=== PATIENT | female | born 1990 | race Caucasian/White ===

== ENCOUNTER → 2020-01-26 08:59 | Outpatient (BNVA) | payer OTHER, SELFPAY | PROVIDERS: Family Provider Family Medicine; PCP Family Medicine; Visit Provider Otolaryngology | DX: H90.A21 Sensorineural hearing loss, unilateral, right ear, with restricted hearing on the contralateral side (principal); H90.A32 Mixed conductive and sensorineural hearing loss, unilateral, left ear with restricted hearing on the contralateral side; J34.2 Deviated nasal septum; H61.22 Impacted cerumen, left ear | CPT/HCPCS: 69210; 99214 ==

== ENCOUNTER 2020-06-21 14:30 | Outpatient (CLI) | payer OTHER, SELFPAY ==
--- NOTE | 2020-06-21 14:46 | US_ITS ---
WS: [id number] OB ultrasound, 06/21/2020 Clinical Data: DATING Comparison: None. Findings: There is a single interuterine . heart rate is 176 beats per minute. There is a yolk sac measuring 0.31 cm. The crown-rump length measured 1.8 cm and the gestational sac 4.21 cm. The estimated gestational age 8w2d is with an XIANG of approximately 01/29/2021. The left ovary measured 3.5 cm x 2.2 cm x 1.3 cm. The right ovary measured 2.3 cm x 2.4 cm x 1.3 cm. No ovarian cyst or masses are seen. US/US OB <= 14 weeks fetus [id number] Impression: 1. Single interuterine . 2. Estimated gestational age of 8w2d with an XIANG of 01/29/2021. 3. heart rate 176 beats per minute.
== END 2020-06-21 14:31 | disposition home or self-care (01) ==
LOC: US 14:36
PROVIDERS: PCP Family Medicine; Visit Provider Family Medicine
DX: Z34.91 Encounter for supervision of normal pregnancy, unspecified, first trimester (principal); Z3A.08 8 weeks gestation of pregnancy
CPT/HCPCS: 76801

== ENCOUNTER → 2020-07-27 12:51 | Outpatient (BNVA) | payer OTHER, SELFPAY | PROVIDERS: PCP Family Medicine; Visit Provider Nurse Practitioner Family | DX: Z20.828 Contact with and (suspected) exposure to other viral communicable diseases (principal) | CPT/HCPCS: 87635 ==

== ENCOUNTER 2020-09-12 14:35 | Outpatient (CLI) | payer OTHER, SELFPAY ==
--- NOTE | 2020-09-12 14:46 | US_ITS ---
WS: [id number] ULTRASOUND TRANSABDOMINAL REASON FOR EXAM: SUPERVISION : 4 PARA: 3 COMPARISON: None available. FINDINGS: Cervical length is 4.11 cm. cm; closed. Placenta grade 0, anterior with no low-lying segments. cardiac tones 138 BPM. Normal four-chamber heart. 3 vessel CORD with normal cord insertion. Normal amniotic fluid volume. Normal extremities. Normal bladder, stomach, and kidneys. No spinal abnormality. Normal cerebellum and cisterna magna. Normal upper lip. Biparietal diameter measures 4.6 cm, equals 20w0d. Head circumference measures 17.5 cm, equals 20w0d. Abdomen circumference measures 15.8 cm, equals 21w0d. Femur length measures 3.2 cm, equals 20w0d. Estimated gestational age 20w2d An estimated delivery 01/28/2021. Estimated weight 356 g. US/US OB >= 14 weeks fetus [id number] IMPRESSION: 1. Single live intrauterine uterines . Estimated gestational age 20w 2d and estimated delivery 01/28/2021.
== END 2020-09-12 14:36 | disposition home or self-care (01) ==
LOC: RAD 14:41
PROVIDERS: PCP Family Medicine; Visit Provider Family Medicine
DX: Z34.82 Encounter for supervision of other normal pregnancy, second trimester; Z3A.20 20 weeks gestation of pregnancy
CPT/HCPCS: 76805

== ENCOUNTER → 2020-11-19 11:39 | Outpatient (BNVA) | payer OTHER, SELFPAY | PROVIDERS: PCP Family Medicine; Visit Provider Family Medicine | DX: Z20.828 Contact with and (suspected) exposure to other viral communicable diseases (principal) | CPT/HCPCS: 87635 ==

== ENCOUNTER 2020-12-11 14:37 | Outpatient (CLI) | payer OTHER, SELFPAY ==
--- NOTE | 2020-12-11 14:40 | US_ITS ---
WS: [id number] LIMITED OBSTETRICAL ULTRASOUND HISTORY: LARGE FOR GESTATION AGE/THIRD TRIMESTER/KELLEN/EFW COMPARISON: 09/12/2020 and 06/21/2020 Presentation: Vertex. Cervix: Closed and normal length. Placenta: Anterior, no previa or abruption. Grade: 1. HEART: FHR of 126 BPM. measurements: BPD = 8.4 cm = 33w5d HC = 30.0 cm = 33w1d AC = 30.1 cm = 34w0d FL = 6.4 cm = 33w0d KELLEN: 15.1 cm EFW: 2237 g; 68 %. AGA by ultrasound: 33w3d XIANG by ultrasound: 01/26/2021 Biometry is internally concordant. Appropriate growth since the prior ultrasound of 06/21/2020. US/US OB limited [id number] IMPRESSION: 1. Single intrauterine gestation of 33 weeks 3 days with an EDC of 01/26/2021. 2. Normal amniotic fluid index. 3. Normal growth.
== END 2020-12-11 14:38 | disposition home or self-care (01) ==
LOC: US 14:38
PROVIDERS: PCP Family Medicine; Visit Provider Family Medicine
DX: O36.63X0 Maternal care for excessive fetal growth, third trimester, not applicable or unspecified (principal); Z3A.33 33 weeks gestation of pregnancy
CPT/HCPCS: 76815

== ENCOUNTER 2021-01-06 09:11 | Outpatient (CLI) | payer OTHER, SELFPAY ==
--- NOTE | 2021-01-06 09:18 | US_ITS ---
WS: [id number] LIMITED OBSTETRICAL ULTRASOUND HISTORY: LARGE FOR GESTATION AGE FETUS/3RD TRIMESTER COMPARISON: 06/21/2020, 09/12/2020 and 12/11/2020 Presentation: Vertex. Cervix: Closed and normal length. Placenta: Anterior, no previa or abruption. Grade: 1 HEART: FHR of 141 BPM. measurements: BPD = 9.0 cm = 36w3d HC = 31.8 cm = 35w5d AC = 33.7 cm = 37w4d FL = 7.1 cm = 36w3d KELLEN: 16.2 cm EFW: 3086 g; 73rd %. AGA by ultrasound: 36w4d XIANG by ultrasound: 01/30/2021 No growth asymmetry. Normal growth of the fetus since the first trimester ultrasound. Head circumfere nce at the 8th percentile which is probably due to difficulty obtaining measurements at this late ges tational age. The BPD is [place]. [place] [id number] IMPRESSION: 1. Single intrauterine gestation of 36 weeks 4 days with an EDC of 01/30/2021. 2. Estimated weight at the 73rd percentile for age. 3. Normal amniotic fluid.
== END 2021-01-06 09:12 | disposition home or self-care (01) ==
PROVIDERS: PCP Family Medicine; Visit Provider Family Medicine
DX: O36.63X0 Maternal care for excessive fetal growth, third trimester, not applicable or unspecified (principal); Z3A.36 36 weeks gestation of pregnancy
CPT/HCPCS: 76816

== ENCOUNTER 2021-01-24 08:56 | Inpatient (IN) | payer OTHER, SELFPAY ==
[2021-01-24] VITALS (29 sets, daily range): BP systolic 103–145; BP diastolic 50–80; PULSE 66–96; TEMP 35.7–36.9; BMI 52.7
[2021-01-24] MEDS: miSOPROStol 100 mcg tablet 25 MCG VAGINAL (10:15)
[2021-01-24 10:17] LABS: Basophils % 0.3 %; Eosinophils # 0.1 10^3/uL (0.0-0.8); Eosinophils % 0.7 %; Hematocrit 34.6 % (37.0-47.0); Hemoglobin 11.3 g/dL (11.5-15.3); Lymphocytes # 1.6 10^3/uL (0.8-4.8); Lymphocytes % 16.2 %; Mean Corpuscular HGB Conc 32.7 g/dL (30.0-36.0); Mean Corpuscular Hemoglobin 28.8 pg (28.0-34.0); Mean Corpuscular Volume 88.3 fL (81-99); Mean Platelet Volume 10.6 fL (7.4-10.4); Monocytes # 0.7 10^3/uL (0.2-0.9); Neutrophils # 7.56 10^3/uL (1.8-7.7); Neutrophils % 74.9 %; Nucleated Red Blood Cells % 0 %; Platelet Count 222 10^3/cmm (130-400); Red Blood Count 3.92 10^6/uL (4.1-5.3); Red Cell Distribution Width 13.9 % (12.1-15.1); White Blood Count 10.1 10^3/uL (4.0-10.0)
[2021-01-24] MEDS: ampicillin 2,000 MG in sodium chloride 0.9% (plus) 50 ML 100 MG IV (10:17)
[2021-01-24] MEDS: dextrose 5%-lactated ringers 1,000 ML 125 ML IV (10:17)
--- NOTE | 2021-01-24 14:14 | PM.HP ---
Providers/Chief Complaint Admitting Physician: Clyde Chow MD Primary Care Provider: Clyde Chow MD Chief Complaint: induction History of Present Illness Angie Nathan is a 30 year old at 39.2 weeks gestation by 8-week ultrasound inconsistent with LMP. Her is complicated by obesity, GBS positive, measuring large for gestational age. The patient presents for an elective induction of labor for concerns of measuring large for gestational age and history of large infants. The patient feels well currently. She had a negative Covid test on 01/22/2021. Patient denies any chest pains, cough, shortness of breath, fever, constipation, diarrhea, dysuria. She has had some mild nausea. Medications/Allergies Home Medications Medication Instructions Recorded Confirmed Last Taken Type cetirizine 10 mg tablet 10 mg PO DAILY 01/26/20 07/27/20 Unknown History prenat.vits,jamison,soo-ppwn-ounnn 1 tab PO DAILY 07/27/20 07/27/20 Unknown History Allergies Allergy/AdvReac Type Severity Reaction Status Date / Time No Known Drug Allergies Allergy Unknown no known Verified 07/27/20 11:43 drug allergies PFSH Acute PFSH: Medical History (Updated 01/24/21 @ 14:28 by Clyde Chow MD) Deviated septum Impacted cerumen of left ear Mixed hearing loss of left ear Sensorineural hearing loss of right ear Social History Smoking and tobacco status: former smoker Alcohol intake: current Alcohol intake frequency: holidays/special occasions only Female Reproductive History: : 4 Vitals/I&O/Wt Last Vital Signs Temp 97.9 F 01/24/21 12:23 Pulse 82 01/24/21 12:24 BP 131/63 01/24/21 12:24 Weight last 48 hrs Weight 307 lb Physical Exam Narrative: EXAM NARRATIVE: General: Alert and oriented x3 Eyes: Pupils equal round and reactive to light and accommodation Mouth: Mucous membranes moist, pharynx non-erythematous Cardiac: Regular rate and rhythm without murmurs Lungs: Clear to auscultation bilaterally without wheezes, crackles or rhonchi Abdomen: Soft, non-tender, fundus large for gestational age Extremities: Trace edema in the bilateral lower extremities Data : 01/24/21 09:59 A&P Additional A&P Information Angie Nathan is a 30 year old at 39.2 weeks gestation by 8-week ultrasound inconsistent with LMP. Her is complicated by obesity, GBS positive, measuring large for gestational age. Currently she is doing well. heart tones are in the mid 130s with moderate variability good accelerations with a category 1 tracing. She is jose j every 2 to 3 minutes. The patient is 1 cm dilated upon admission. She will get Cytotec for induction of labor. She is GBS positive and she will be started on ampicillin. All questions were answered. Proceed with routine care at this time. Attestations Medical Necessity Statement*: The patient will be here for greater than 2 midnights due to routine intrapartum and management of labor and delivery. Coding Level of Care Code Acute Aircraft Load Controller for Brian Jameson
[2021-01-24] MEDS: ampicillin 1,000 MG in sodium chloride 0.9% (plus) 50 ML 100 MG IV ×3 (14:23→21:33)
[2021-01-24] MEDS: butorphanol 2 mg/mL SDV 1 mL 1 MG IVP ×3 (18:24→22:27)
[2021-01-24] MEDS: oxytocin 30 UNIT/500 ML BAG IV (18:44)
[2021-01-25] VITALS (72 sets, daily range): BP systolic 91–188; BP diastolic 55–118; PULSE 63–102; RESP 17; TEMP 35.7–36.7; O2SAT 89–100
[2021-01-25] MEDS: butorphanol 2 mg/mL SDV 1 mL 1 MG IVP (00:26)
[2021-01-25] MEDS: ampicillin 1,000 MG in sodium chloride 0.9% (plus) 50 ML 100 MG IV ×3 (01:18→09:23)
[2021-01-25] MEDS: dextrose 5%-lactated ringers 1,000 ML 125 ML IV ×2 (01:19→08:10)
[2021-01-25] MEDS: ondansetron 2 mg/ML SDV 2 mL 4 MG IVP ×2 (04:13→09:53)
[2021-01-25] MEDS: lactated ringers 1,000 ML 999 ML IV ×2 (04:20→06:29)
--- NOTE | 2021-01-25 06:03 | ANES.PREANE2 ---
Pre-Anesthetic Assessment Pre-Anesthetic Assessment: Height/Weight: Height 1.63 m Weight 139.253 kg Temp Pulse BP Pulse Ox 97.9 F 86 126/63 99 01/25/21 03:58 01/25/21 06:01 01/25/21 06:01 01/25/21 05:56 Preop Diagnosis: Active Labor Proposed Procedure: Labor Epidural Was Beta Ever taken within 24 hours: N/A Was Clonidine taken within 24 hours: N/A Last intake: clear liquids Social: Social History: No alcohol and No tobacco Exam: Pre-Anes Outpt Exam: alert, oriented x 3, clear to auscultation bilaterally and regular rate & rhythm Airway: Submandibular: WNL Cervical ROM: WNL MP: 1 History/ROS: No significant history except as noted Pulmonary: Pulmonary: None reported CV/HEM: CV/HEM: None reported : : None reported Hepatic: Hepatic: None reported GI: GI: None reported Metabolic: Metabolic: Morbid obesity Musc/skel: Musc/skel: None reported Neuropsych: Neuropsych: None reported Anesthetic Plan: ASA status: 2 Anesthesia: Eval. for regional block Risk of > 500 ml blood loss (7ml/kg in children): No Meds/Allergies Current Medications: Current Medications Generic Name Dose Route Start Last Admin Trade Name Freq PRN Reason Stop Dose Admin Butorphanol Tartra te 1 mg 01/24/21 09:29 01/25/21 00:26 Butorphanol 2 Mg /Ml Sdv 1 Ml IVP 1 mg Q2H PRN Administration SEVERE PAIN Dextrose/Lactated Ringer's 1,000 mls @ 125 m ls/hr 01/24/21 09:30 01/25/21 05:21 Dextrose 5%-Lact ated Ringers IV 125 mls/hr .Q8H GUALBERTO Infusion Ampicillin Sodium 1,000 mg/ 50 mls @ 100 mls/ hr 01/24/21 13:33 01/25/21 01:48 Sodium Chloride IV Infused Q4H GUALBERTO Infusion Protocol Oxytocin 30 unit in 500 ml s @ 2 mls/hr 01/24/21 18:45 01/25/21 02:53 Pitocin IV 10 milliunit/min .Q24H GUALBERTO 10 mls/hr Titration Protocol 2 MILLIUNIT/MIN Lactated Ringer's 1,000 mls @ 999 m ls/hr 01/25/21 04:16 01/25/21 05:21 Lactated Ringers IV Infused .Q1H1M PRN Infusion See label comment s Ondansetron HCl 4 mg 01/24/21 09:29 01/25/21 04:13 Ondansetron 2 Mg /Ml Sdv 2 Ml IVP 4 mg Q4H PRN Administration NAUSEA AND VOMITI NG PFSH Anesthesia PFSH: Medical History (Updated 01/24/21 @ 14:28 by Clyde Chow MD) Deviated septum Impacted cerumen of left ear Mixed hearing loss of left ear Sensorineural hearing loss of right ear Social History Smoking and tobacco status: former smoker Alcohol intake: current Alcohol intake frequency: holidays/special occasions only Female Reproductive History: : 4 Data Anesthesia CBC & Chem 7: 01/24/21 09:59 Other Labs: Laboratory Results - last 48 hr 01/24/21 09:59 WBC 10.1 H RBC 3.92 L Hgb 11.3 L Hct 34.6 L MCV 88.3 MCH 28.8 MCHC 32.7 RDW 13.9 Plt Count 222 MPV 10.6 H Neut % (Auto) 74.9 Lymph % (Auto) 16.2 [place] % (Auto) 7.0 Eos % (Auto) 0.7 Baso % (Auto) 0.3 Neut # (Auto) 7.56 Lymph # (Auto) 1.6 [place] # (Auto) 0.7 Eos # (Auto) 0.1 Baso # (Auto) 0.0 Nucleated RBC % (auto) 0 Nucleated RBCs # 0.0 Cardiac Studies: No Data to Display
--- NOTE | 2021-01-25 06:05 | ANES.PROC ---
Anesthesia Procedures Procedure/Date: 01/25/21 Epidural: Time Out Performed: Yes Consents Signed: Procedure Consent Consent: requested by attending/covering physician, from patient, risks and benefits reviewed and patient agrees to proceed Lumbar Level: L4-L5 Epidural procedure: sterile prep of area, 1% lidocaine to numb the area, negative for paresthesia passed, neg for paresthesia, test dose given, 1.5% xylocaine 1:200k epi, 0.2% Ropivacaine bolus ml (5 ml), no systemic response, sterile dressing applied, L.U.D. no apparent complications and 0.2% Ropiavacaine @ mls/hr (13) Additional Comments: VIKAS at 9 cm catheter threaded to 16 cm.
--- NOTE | 2021-01-25 11:59 | P.PCNOB_ITS ---
Delivery Note: Date of delivery: January 25, 2021 Pre-delivery diagnoses: 1. Intrauterine at 39.3 weeks gestation 2. Obesity 3. GBS positive Post-delivery diagnoses: 1. Intrauterine status post vacuum-assisted vaginal delivery at 39.3 weeks gestation 2. Obesity 3. GBS positive 4. Nuchal cord x1 5. Shoulder dystocia x1 minute 6. Delivery of female weighing 10 pounds 12 ounces with Apgars of 1, 5, 7 Pre-Delivery Course: Patient presented to labor and delivery for induction of labor on the morning of 01/24/2021. She was brought in for an elective delivery due to concern for measuring large for gestational age. The patient's ultrasound on 01/06/2021 gave an estimated weight of 3086g and for this reason we wanted to deliver earlier to decrease risk for a large for gestational age . The patient was 1/thick/high upon admission. She was given 1 dose of Cytotec. With this she began to have contractions every 2 to 4 minutes. She thinned some, however did not make significant change. After a number of hours she continued to not make significant change, so IV Pitocin was added to augment labor. The patient was still 1/30/-3 by the evening of 01/24/2021, so I swept her membranes. After this she began to make further change. SROM took place early in the morning of 01/25/2021. She began to make change and received a la boring epidural. Her contractions were long, however quite spaced apart and every 6 minutes on average. There were significant early decelerations with each contraction that recovered well in between contractions. During this process IV Pitocin had been started, however the recovery after the early deceleration was not ideal, so it was stopped. She had a prolonged deceleration that recovered with stopping IV Pitocin, a fluid bolus and repositioning. By 7:54 AM on 01/25/2021, she was complete. Delivery: The patient began pushing at 7:54 AM on 01/25/2021. The patient pushed well with contractions and made steady but slow change. After approximately 2 hours of pushing we discussed possibly doing a section or using a vacuum if change was not been made quickly. The head then began to descend shortly after this 2-hour taylor and so we decided to proceed with pushing. The patient had a contraction that started at 10:46 AM and she pushed well with it, however following this contraction there was a prolonged deceleration. At this point the infant's head was in the +2 station. For this reason at 10:49 AM on 01/25/2021 a vacuum was placed to help expedite the 's delivery. The patient continued to push, however was becoming worn out from pushing and was not able to push as effectively as before. The infant's head partially delivered in the OA position at 10:51 AM. The surrounding vaginal tissue was loose and not restricting delivery. A nuchal cord was noted. It was not reduced to help expedite the delivery. The right shoulder was the anterior shoulder. Suprapubic pressure was placed by the nurses and steady downward pressure was placed by myself and the anterior shoulder would not deliver. Upward pressure was placed to help deliver the posterior shoulder. It still would not deliver with this. I used one finger to try and sweep the right arm inward and it would not deliver either. Finally upward pressure was again applied and the posterior shoulder delivered which then allowed the anterior shoulder to deliver. During this process the nurses gave strong urging for the mother to resume pushing even though she was worn out. The infant delivered at 10:52 AM on 01/25/2021. The had no tone at . The cord was clamped by myself and cut by the nurse. The was taken to the warmer and was warmed and dried and immediately respirations were given. The infant began to breathe shortly after ventilation was given. The umbilical cord was drained of blood and traction was placed. The placenta delivered without complication at 11:19 AM on 01/25/2021. The placenta was noted to be intact with a central umbilical cord insertion site. The uterus was massaged and noted to be firm and midline. A catheter was placed and the bladder was drained of urine. The vaginal wall was inspected and there were a few small abrasions without any lacerations. The cervix was inspected and no lacerations were noted. Currently both the mother and are doing well. A&P Assessment and plan (1) Vacuum-assisted vaginal delivery: Status: Resolved Coding Level of Care Code Acute Dressage Instructor for Chg Fwd Diagnoses Vacuum-assisted vaginal delivery Z37.9
--- NOTE | 2021-01-25 12:28 | PC.NURSE ---
pushing in stirrups
[2021-01-25] MEDS: benzocaine-menthol 78 gm Canister 1 SPRAY TOPICAL (14:53)
[2021-01-25] MEDS: ibuprofen 800 mg tablet PO ×2 (14:54→21:01)
[2021-01-25] MEDS: lanolin oint 7 gm 1 APPLIC TOPICAL (14:54)
[2021-01-25] MEDS: alum-mag-hydroxide-sime 30 mL UDC PO ×2 (16:23→20:05)
--- NOTE | 2021-01-25 18:06 | PC.NURSE ---
Delivery Patient began pushing at 0754. Joce Greenwood RN, Dr Chow, Monica Rivera CST and nursing instructor Lele Watson at bedside continually. The patient pushed well with contractions and made steady but slow change. The head then began to descend shortly after 2hours of pushing. The patient had a contraction that started at 1046 and she pushed well with it, following this contraction there was a prolonged deceleration. At this point the infant's head was at +2 station. At [address] by Dr Chow. The patient continued to push, but was becoming more tired and pushing effort was not as strong. Baby's head partially delivered in the OA position at 10:51 AM. Baby had a nuchal cord which was not reduced. The right shoulder was the anterior shoulder. Suprapubic pressure was performed by Joce Greenwood RN. During this process Joce Greenwood RN and Angus Severino RN gave strong guidance for the mother to keep pushing even though she was tired. Extra nursing staff was called to the room when it was determined that suprapubic pressure was needed. Lele Bond RN and Davi Armenta RN came quickly to the delivery room and were at bedside at time of delivery. Baby delivered at 1052. Baby had no tone and no heart rate upon arrival to the warmer. Cord was clamped and cut immediately at the perineum. Babywas taken to warmer and was dried and stimulated and immediate mechanical respirations were given. The infant began to breathe shortly after ventilation was given. See delivery summary in baby's chart.
[2021-01-25] MEDS: docusate sodium 100 mg Capsule PO (18:59)
[2021-01-25] MEDS: HYDROcodone-acetaminophen 5-325 mg Tablet PO (18:59)
[2021-01-25 23:14] LABS: Hematocrit 32.7 % (37.0-47.0); Hemoglobin 10.9 g/dL (11.5-15.3); Mean Corpuscular HGB Conc 33.3 g/dL (30.0-36.0); Mean Corpuscular Hemoglobin 29.1 pg (28.0-34.0); Mean Corpuscular Volume 87.4 fL (81-99); Mean Platelet Volume 10.3 fL (7.4-10.4); Platelet Count 245 10^3/cmm (130-400); Red Blood Count 3.74 10^6/uL (4.1-5.3)
[2021-01-26] MEDS: HYDROcodone-acetaminophen 5-325 mg Tablet PO ×2 (00:19→06:11)
[2021-01-26] MEDS: alum-mag-hydroxide-sime 30 mL UDC PO (00:19)
[2021-01-26 00:23] VITALS: TEMP 36.4
[2021-01-26 00:24] VITALS: BP 123/57; PULSE 73
[2021-01-26 04:04] VITALS: BP 114/66; PULSE 76; TEMP 36.3
--- NOTE | 2021-01-26 09:49 | PM.DCS ---
Discharge Providers Date of Admission: 01/24/21 08:56 Date of Discharge: January 26, 2021 Attending Provider at Admission: Clyde Chow MD Attending Provider at Discharge: Clyde Chow MD Primary Care Provider: Clyde Chow MD Diagnoses at Discharge Discharge Diagnosis (1) Vacuum-assisted vaginal delivery: Status: Resolved (2) Shoulder dystocia during labor and delivery: Status: Acute Other Information Additional DC diagnoses/information: 1. Intrauterine status post vacuum-assisted vaginal delivery at 39.3 weeks gestation 2. Obesity 3. GBS positive 4. Nuchal cord x1 5. Shoulder dystocia x1 minute 6. Delivery of infant female weighing 10 pounds 12 ounces with Apgars of 1, 5, 7 Reason for Visit Reason for Visit: induction Hospital Course Hospital Course The patient presented to labor and delivery for induction of labor on the morning of 01/24/2021. She was brought in for an elective delivery due to concern for measuring large for gestational age. She was given Cytotec and eventually labor was augmented with Pitocin. She made slow but steady change and delivered a 10 pound 12 ounce at 10:51 AM on 01/25/2021. This was complicated by a shoulder dystocia x1 minute. She did not have any lacerations. the patient has done very well without any complications. She is ambulating, voiding, passing gas and tolerating food by mouth. Her bleeding is decreasing well. Overall her pain is well controlled. Routine discharge instructions were discussed and the patient is requesting discharge today. All questions were answered. She will follow-up with me in clinic. Currently both the mother and are doing very well. Physical Exam Narrative: EXAM NARRATIVE: General: Alert and oriented x3 Cardiac: Regular rate and rhythm without murmurs Lungs: Clear to auscultation bilaterally without wheezes, crackles or rhonchi Abdomen: Soft, non-tender, fundus is firm and just below the umbilicus. Extremities: Trace edema in the bilateral lower extremities Discharge Data Data Completed and Pending: Labs from last 24 hours 01/25/21 23:00 WBC 16.0 H RBC 3.74 L Hgb 10.9 L Hct 32.7 L MCV 87.4 MCH 29.1 MCHC 33.3 RDW 14.0 Plt Count 245 MPV 10.3 Vitals: Last Vital Signs Temp 97.3 F L 01/26/21 04:04 Pulse 76 01/26/21 04:04 Resp 17 01/25/21 12:30 BP 114/66 01/26/21 04:04 Pulse Ox 100 01/25/21 06:21 Discharge Plan Discharge Patient Disposition: Home Condition: Good Prescriptions: New DOK 100 mg Capsule 100 mg PO BID PRN (Reason: constipation) Qty: 60 RF: 0 ibuprofen 800 mg Tablet 800 mg PO TID Qty: 60 RF: 0 ferrous sulfate 325 mg (65 mg iron) tablet 325 mg PO BID 14 Days Qty: 28 RF: 0 hydrocodone-acetaminophen 5-325 mg Tablet 1 - 2 tab PO Q6H PRN (Reason: Moderate To Severe Pain) Qty: 30 RF: 0 Continued cetirizine [Zyrtec] 10 mg tablet 10 mg PO DAILY RF: 0 prenat.vits,jamison,jte-cuyk-juhlb Tablet 1 tab PO DAILY RF: 0 Referrals: Clyde Chow MD [Primary Care Provider] - 6 Weeks (Please call [facility] to schedule your 6 week follow up appointment with Dr. Chow first thing Wednesday.) Discharge Diet: Advance as tolerated Discharge Activity: Limit activity as instructed Patient Instructions: Pre-eclampsia and Eclampsia (DC), Bleeding (DC), OB Discharge Report, OB Food/Drug Interaction Guide, OB Your Care - [facility], OB Proud Parent Packet, OB Vaginal Deliveries, Abnormal Bleeding Activity Restrictions/Additional Instructions: Nothing per vagina for 6 weeks. If you have any concerns prior to your appointment, please feel free to call for a sooner appointment. Discharge Attestations Time Spent in Discharge Care*: greater than 30 min Quality Metrics Clinical Quality Measures During this hospital stay, did patient experience: None Coding Level of Care Code Acute Chg FW DC note Diagnoses Vacuum-assisted vaginal delivery Z37.9 Shoulder dystocia during labor and delivery O66.0
[2021-01-26] MEDS: prenatal vitamin Capsule 1 CAP PO (09:56)
[2021-01-26] MEDS: docusate sodium 100 mg Capsule PO (09:56)
[2021-01-26] MEDS: ibuprofen 800 mg tablet PO (09:56)
[2021-01-26 10:00] VITALS: BP 126/71; PULSE 85
[2021-01-26 10:23] VITALS: RESP 16
[2021-01-26 12:57] VITALS: BP 126/71; PULSE 85; RESP 16; TEMP 36.3
== END 2021-01-26 12:50 | disposition home or self-care (01) | DRG 807 ==
PROVIDERS: Admitting Provider Family Medicine; PCP Family Medicine; Visit Provider Family Medicine
DX: O69.81X0 Labor and delivery complicated by cord around neck, without compression, not applicable or unspecified (principal); Z37.0 Single live birth; O99.824 Streptococcus B carrier state complicating childbirth; Z3A.39 39 weeks gestation of pregnancy; O66.0 Obstructed labor due to shoulder dystocia; O99.214 Obesity complicating childbirth; O76 Abnormality in fetal heart rate and rhythm complicating labor and delivery
CPT/HCPCS: 36415; 59025; 59409; 85025; 85027; 96374; 96375; J0290; J0595; J2405; J2795